=== PATIENT | female | born 1940 | race Caucasian/White ===

== ENCOUNTER → 2017-07-05 | Outpatient (CLI) | payer BC ==
--- NOTE | 2017-07-05 13:32 | RAD ---
DATE: 07/05/2017 EXAM: DIGITAL SCREEN BILAT W/CAD HISTORY: Routine screening COMPARISON: 06/10/2016 This study was interpreted with the benefit of Computerized Aided Detection (CAD). The breast parenchyma shows scattered fibroglandular densities. Breast parenchyma level B. FINDINGS: No new or enlarging breast densities are seen. Benign type calcifications are present. No suspicious microcalcifications have developed. IMPRESSION: Stable mammograms without evidence of malignancy. BI-RADS CATEGORY: 2 BENIGN FINDING(S) RECOMMENDED FOLLOW-UP: 12M 12 MONTH FOLLOW-UP PQRS compliance statement: Patient information was entered into a reminder system with a target due date for the next mammogram. Mammography is a sensitive method for finding small breast cancers, but it does not detect them all and is not a substitute for careful clinical examination. A negative mammogram does not negate a clinically suspicious finding and should not result in delay in biopsying a clinically suspicious abnormality. "Our facility is accredited by the [employer] Mammography [employer]."
== END | disposition home or self-care (01) ==
LOC: MAMMO 10:24
PROVIDERS: ATTEND Family Medicine
DX: Z12.31 Encounter for screening mammogram for malignant neoplasm of breast (principal)
CPT/HCPCS: G0202; 77067

== ENCOUNTER → 2017-10-27 | Outpatient (CLI) | payer BC | END | disposition home or self-care (01) | LOC: KCIC 13:21 | DX: R06.02 Shortness of breath (principal); Z87.891 Personal history of nicotine dependence | CPT/HCPCS: 71046 ==

== ENCOUNTER → 2018-07-06 | Outpatient (CLI) | payer BC ==
--- NOTE | 2018-07-06 16:14 | RAD ---
DATE: 07/06/2018 EXAM: MAMMO PAULIE SCREENING BILATERAL HISTORY: Routine screening COMPARISON: 06/10/2016 and 07/05/2017 screen mammographic exams This study was interpreted with the benefit of Computerized Aided Detection (CAD). Breast Density: SCATTERED The breast parenchyma shows scattered fibroglandular densities. Breast parenchyma level B. FINDINGS: Small masses are stable. No suspicious calcification clusters or distortion. Benign-appearing axillary lymph nodes are present. No distortion in the interval. No new mass. IMPRESSION: Normal BI-RADS CATEGORY: 2 BENIGN FINDING(S) RECOMMENDED FOLLOW-UP: 12M 12 MONTH FOLLOW-UP PQRS compliance statement: Patient information was entered into a reminder system with a target due date in one year for the next mammogram. Mammography is a sensitive method for finding small breast cancers, but it does not detect them all and is not a substitute for careful clinical examination. A negative mammogram does not negate a clinically suspicious finding and should not result in delay in biopsying a clinically suspicious abnormality. "Our facility is accredited by the [employer] Mammography [employer]."
== END | disposition home or self-care (01) ==
LOC: MAMMO 12:32
PROVIDERS: ATTEND Family Medicine
DX: Z12.31 Encounter for screening mammogram for malignant neoplasm of breast (principal)
CPT/HCPCS: 77063; 77067

== ENCOUNTER → 2018-09-12 | Outpatient (CLI) | payer BC ==
--- NOTE | 2018-09-12 12:49 | KCIC ---
CHEST CT WITHOUT CONTRAST Clinical indications: Shortness of breath. Wheezing. Smoker for 50 years. TECHNIQUE: Noncontrast helical CT scanning of the chest was performed. Without contrast, the sensitivity to detect organ pathology is decreased. PQRS compliance Statement One or more of the following individualized dose reduction techniques were utilized for this study: 1. Automated exposure control 2. Adjustment of the mA and/or kV according to patient size 3. Use of iterative reconstruction technique COMPARISON: None available. FINDINGS: Mediastinal lymph nodes are apparent. There is a 15 mm precarinal lymph node. There is a 22 mm aortic pulmonary window lymph node. There is an 18 mm subcarinal lymph node. There are other mediastinal lymph nodes less than 1 cm in size. Evaluation for hilar lymphadenopathy is difficult without IV contrast. Calcified atheromatous disease of the coronary arteries is seen. Heart size is normal and no pericardial effusion is seen. Small hiatal hernia is evident. No focal aneurysmal dilatation of the thoracic aorta is seen. Bilateral peripheral interstitial lung infiltrates are seen bilaterally with a lower lung zone predominance which may be due to mild pulmonary fibrosis. No honeycombing is evident. There is biapical pleural thickening and scarring present. No lung mass or lung consolidation is seen. No pleural effusion or pneumothorax is seen. The proximal bronchial tree is patent. There is a compression fracture of T12 which was seen on a prior chest x-ray dated October 27, 2017 and therefore is old. No lytic process is seen.There is indeterminate hypodense nodule of the posterior segment right lobe liver which measures about 1 cm. There is a 1 cm cyst of the superior aspect left lobe liver. No adrenal mass is seen. IMPRESSION: Mild bilateral peripheral interstitial infiltrates are seen which may represent mild pulmonary fibrosis. No lung consolidation or lung mass is seen. Mediastinal lymphadenopathy. Follow-up chest CT in 3-4 months is recommended to ensure stability of this finding. Calcified atheromatous disease of the coronary arteries. Small hiatal hernia. Indeterminate 1 cm hypodense nodule of the right lobe of the liver. Electronically signed by: Chaim Galvan MD (09/12/2018 12:45 PM) [place] [id number]
== END | disposition home or self-care (01) ==
LOC: KCIC CT 11:09
PROVIDERS: ATTEND Family Medicine
DX: I25.10 Atherosclerotic heart disease of native coronary artery without angina pectoris (principal); K44.9 Diaphragmatic hernia without obstruction or gangrene
CPT/HCPCS: 71250

== ENCOUNTER → 2018-10-14 | Outpatient (CLI) | payer BC ==
[~2018-10-14] MED LIST: AMLO5TAB10 PO; CALC500T30 PO; CHOL100013 PO; CLOP75TA PO; CYAN25008 PO; LOSA1TAB22 PO; LOVA20TA2 PO; OMEP20TA8 PO
--- NOTE | 2018-10-14 10:27 | KCIC ---
Indication: Compression fracture of the thoracic vertebrae. Postmenopausal. TECHNIQUE: DEXA scan COMPARISON: Previous exam from 03/17/2012 FINDINGS: The bone mineral density from L1-L4 measures 1.434 g/sq cm with T score of 3.5, previously 3.7. The bone mineral density in the left femoral neck measures 1.004 g/sq cm with T score of 0.5, previously 0.4. IMPRESSION: Normal bone mineral density at all measured sites. Electronically signed by: Korey Bearden DO (10/14/2018 10:24 AM) [id number]
== END | disposition home or self-care (01) ==
LOC: KCIC DEXA 09:50
PROVIDERS: ATTEND Family Medicine
DX: M84.48XA Pathological fracture, other site, initial encounter for fracture (principal); Z78.0 Asymptomatic menopausal state
CPT/HCPCS: 77080

== ENCOUNTER → 2018-11-10 | Outpatient (CLI) | payer BC ==
--- NOTE | 2018-11-10 09:03 | CARD ---
MR#: [id number] Date of Study: 11/10/2018 Ordering Physician: REDD JAEGER, Referring Physician: REDD JAEGER Tech: Valarie Olson RDCS APPROVED REPORT EXAM: Two-dimensional and M-mode echocardiogram with Doppler and color Doppler. Other Information Quality : Good INDICATION Dyspnea 2D DIMENSIONS RVDd2.8 (2.9-3.5cm)Left Atrium(2D)4.2 (1.6-4.0cm) IVSd1.0 (0.7-1.1cm)Aortic Root(2D)2.7 (2.0-3.7cm) LVDd4.4 (3.9-5.9cm)LVOT Diameter2.2 (1.8-2.4cm) PWd1.0 (0.7-1.1cm)LVDs2.5 (2.5-4.0cm) FS (%) 30.0 %SV63.0 ml LVEF(%)60.0 (>50%) Aortic Valve AoV Peak Sanjeev.135.7cm/sAoV VTI26.2cm AO Peak GR.7.4mmHgLVOT Peak Sanjeev.88.9cm/s AO Mean GR.4mmHgAVA (VMAX)2.58cm2 ILEANA (VTI)2.70cm2 Mitral Valve MV E Zskxiwxo271.2cm/sMV DECEL FBSK846xk MV A Txdirwtu67.7cm/sE/A Ratio1.2 Tricuspid Valve TR P. Zhzhymuf671nf/sRAP QKQSHMYZ7jaTc TR Peak Gr.82aeAiGMZA19ksKj Pulmonary Vein S1 Khknvcxn49.4cm/sD2 Bapfuupz05.8cm/s LEFT VENTRICLE The left ventricle is normal size. There is borderline concentric left ventricular hypertrophy. The l eft ventricular systolic function is normal and the ejection fraction is within normal range. The Eje ction Fraction is 55-60%. There is normal LV segmental wall motion. Transmitral Doppler flow pattern is Grade I-abnormal relaxation pattern. RIGHT VENTRICLE The right ventricle is normal size. The right ventricular systolic function is normal. ATRIA The left atrium is mildly dilated. The right atrium size is normal. The interatrial septum is intact with no evidence for an atrial septal defect or patent foramen ovale as noted on 2-D or Doppler imagi ng. AORTIC VALVE The aortic valve is calcified but opens well. Doppler and Color Flow revealed no significant aortic r egurgitation. There is no significant aortic valvular stenosis. MITRAL VALVE The mitral valve is calcified but opens well. There is no evidence of mitral valve prolapse. There is no mitral valve stenosis. Doppler and Color-flow revealed trace mitral regurgitation. TRICUSPID VALVE The tricuspid valve is normal in structure and function. Doppler and Color Flow revealed trace tricus pid regurgitation. The PA pressure was estimated at 25 mmHg. There is no tricuspid valve stenosis. PULMONIC VALVE The pulmonic valve is not well visualized. Doppler and Color Flow revealed no pulmonic valvular regur gitation. There is no pulmonic valvular stenosis. GREAT VESSELS The aortic root is normal in size. The ascending aorta is normal in size. The IVC is normal in size a nd collapses >50% with inspiration. PERICARDIAL EFFUSION There is no evidence of significant pericardial effusion. Critical Notification Critical Value: No <Conclusion> The left ventricle is normal size. The left ventricular systolic function is normal and the ejection fraction is within normal range. The Ejection Fraction is 55-60%. There is borderline concentric left ventricular hypertrophy. There is no significant aortic valvular stenosis. Doppler and Color Flow revealed no significant aortic regurgitation. Doppler and Color-flow revealed trace mitral regurgitation. Doppler and Color Flow revealed trace tricuspid regurgitation. The PA pressure was estimated at 25 mmHg. Signed by : Scott Schwarz MD Electronically Approved : 11/10/2018 09:03:05
--- NOTE | 2018-11-10 12:39 | RAD ---
MR#: [id number] Date of Study: 11/10/2018 Ordering Physician: MARLEY DEWITT, Referring Physician: DANG COBB Tech: SHREE Mendoza APPROVED REPORT Test Type: Exercise Stress Nurse/Tech: Arabella Mederos R.N. Test Indications: dyspnea on exertion Cardiac History: htn,CVA, Medications: See Electronic Medical Record Medical History: See Electronic Medical Record Resting ECG: SR Resting Heart Rate: 65 bpm Resting Blood Pressure: 154/76mmHg Pretest Chest Pain: No chest pain Nurse/Tech Notes S1S2, lungs CTA Consent: The procedure was explained to the patient in lay terms. Informed consent was witnessed. John eout was entered into [email or web address]. History and Stress Test performed by RT Deena (R) (N) Stress Symptoms SOB, leg fatigue POST EXERCISE Reason for Termination: Reached target heart rate Target HR: Yes Max HR: 167 bpm 137% of Maximum Predicted HR: 122 bpm Exercise duration: 4:45 min:sec, 2 Stage Exercise capacity: 7METs Max Blood Pressure: 177/60mmHg Blood Pressure response to exercise: Normal blood pressure response during stress. Heart Rate response to exercise: wnl Chest Pain: No. Arrhythmia: Yes. HR became very irregular with multiple pac's and few pvc's` ST Change: Yes. very slight ST elevation in lead AVR, very slight ST depression in lead II, V4-V6 INTERPRETATION Stress EKG Conclusion: Abnormal EKG suggestive of multivessel disease. Imaging Protocol IMAGE PROTOCOL: Rest Tc-99m/stress Tc-99m 1 day Rest: Stress: Viability: Radiopharm.Tc99m XyxxlwdtjDt91e Sestamibi Xtpm54rSy 32mCi Duration 16min. 13min. Img Date 11/10/2018 11/10/2018 Inj-Img Ikgl54fbu. 60min. Rest Admin Site:IV - Right AntecubitalAdministrator:RT Deena (R)(N) Stress Admin Site: IV - Right AntecubitalAdministrator: SHREE Mendoza STRESS DATA End Diast. Vol.50.0mlLVEDV index BSA25.0ml End Syst. Vol.7.0mlLVESV index BSA3.0ml Myocardial Mass90.0gEject. Ieurciza33.0% Stress Scores Regional WT0.00Summed WT0.00 Regional WM0.00Summed WM0.00 LV Perfusion There is small sized apical reversible perfusion defect suggestive of mildly impaired perfusion reser ve. Wall Motion Normal wall motion. LV Perf. Quant 17 Seg. SSS6.00 17 Seg. SRS0.00 17 Seg. SDS6.00 Stress Defect Extent (% LAD)1.90Rest Defect Extent (% LAD)0.00Rev. Defect Extent (% LAD)1.90 Stress Defect Extent (% LCX) 30.00Rest Defect Extent (% LCX)0.00Rev. Defect Extent (% LCX)28.80 Stress Defect Extent (% RCA)2.20Rest Defect Extent (% RCA)0.00Rev. Defect Extent (% RCA)2.20 Stress Defect Extent (% NATA)13.00Rest Defect Extent (% NATA)0.00Rev. Defect Extent (% NATA)12.80 Other Information Quality:Average Risk Assessment: Moderate Risk Conclusion 1. Low exercise capacity with only 4.6 Mets achieved 2. Abnormal EKG response with ST changes suggestive of multivesel disease. 3. Small apical reversible defect 4. Normal EF at > 70% 5. Moderate risk study Signed by : Marley Dewitt, Electronically Approved : 11/10/2018 12:38:51
== END | disposition home or self-care (01) ==
LOC: ECHO 10:56
PROVIDERS: ATTEND Internal Medicine Pulmonary Disease
DX: I25.10 Atherosclerotic heart disease of native coronary artery without angina pectoris (principal); I10 Essential (primary) hypertension; R94.31 Abnormal electrocardiogram [ECG] [EKG]; R00.8 Other abnormalities of heart beat; Z86.73 Personal history of transient ischemic attack (TIA), and cerebral infarction without residual deficits
CPT/HCPCS: 78452; 93017; 93306; 96374; 96376; A9500

== ENCOUNTER 2018-11-17 08:15 | Outpatient (CLI) | payer BC ==
[2018-11-17] VITALS (11 sets, daily range): BP systolic 145–170; BP diastolic 54–88
[~2018-11-17] VITALS: Ht 172.7 cm; Wt 87.1 kg
[2018-11-17 09:03] LABS: HEMATOCRIT 39.6 % (36.0-47.0); HEMOGLOBIN 13.2 g/dL (12.0-15.5); RED BLOOD COUNT 4.39 x10^6/uL (3.50-5.40); RED CELL DISTRIBUTION WIDTH 13.4 % (11.5-14.5); WHITE BLOOD COUNT 8.5 x10^3/uL (4.0-11.0)
[2018-11-17 09:18] LABS: CALCIUM 9.5 mg/dL (8.5-10.1); CREATININE 1.4 mg/dL (0.6-1.0); GFR 36.6; POTASSIUM 4.4 mmol/L (3.5-5.1)
[2018-11-17] MEDS ORDERED: OMEP20TA8 PO (09:31)
[2018-11-17] MEDS ORDERED: CLOP75TA PO (09:31)
[2018-11-17] MEDS ORDERED: CALC500T30 PO (09:31)
[2018-11-17] MEDS ORDERED: CHOL100013 PO (09:31)
[2018-11-17] MEDS ORDERED: LOSA1TAB22 PO (09:31)
[2018-11-17] MEDS ORDERED: AMLO5TAB10 PO (09:31)
[2018-11-17] MEDS ORDERED: LOVA20TA2 PO (09:31)
[2018-11-17] MEDS ORDERED: CYAN25008 PO (09:31)
[2018-11-17 09:34] LABS: PROTHROMBIN TIME PATIENT 12.6 SEC (11.7-14.0)
[2018-11-17] MEDS ORDERED: LIDOCAINE 1% PF 2 ML VIAL. ONE (09:36)
[2018-11-17] MEDS ORDERED: VERAPAMIL 5 MG/2 ML VIAL. ONE (09:38)
[2018-11-17] MEDS ORDERED: fentaNYL PF VIAL 100 MCG/2 ML VIAL ONE (09:38)
[2018-11-17] MEDS ORDERED: MIDAZOLAM HCL/PF 2 MG/2 ML VIAL. ONE (09:38)
[2018-11-17] MEDS ORDERED: HEPARIN for IV BOLUS 10,000 UNIT/10 ML VIAL. ONE (09:38)
[2018-11-17] MEDS ORDERED: NITROGLYCERIN 200 MCG/2 ML SYRINGE FOR CATH/VASC LAB. ONE ×2 (09:39→10:30)
[2018-11-17] MEDS ORDERED: IODIXANOL 320 MG/ML 100 ML VIAL. ONE (09:56)
[2018-11-17] MEDS ORDERED: fentaNYL PF VIAL 100 MCG/2 ML VIAL IV ONE (10:00)
[2018-11-17] MEDS ORDERED: LIDOCAINE 1% PF 2 ML VIAL. INJ ONE (10:00)
[2018-11-17] MEDS ORDERED: VERAPAMIL 5 MG/2 ML VIAL. IART ONE (10:00)
[2018-11-17] MEDS ORDERED: HEPARIN for IV BOLUS 10,000 UNIT/10 ML VIAL. IART ONE (10:00)
[2018-11-17] MEDS ORDERED: MIDAZOLAM HCL/PF 2 MG/2 ML VIAL. IV ONE (10:00)
[2018-11-17] MEDS ORDERED: IODIXANOL 320 MG/ML 100 ML VIAL. IART ONE (10:00)
[2018-11-17] MEDS: NITROGLYCERIN 200 MCG/2 ML SYRINGE FOR CATH/VASC LAB. IART ONE (10:00)
--- NOTE | 2018-11-17 10:06 | PDOC ---
MODERATE SEDATION ASSESSMENT RISKS/ALTERNATIVES Risks/Alternatives Risks and alternatives of this type of sedation and procedure discussed with: RISK/ALTERNATIVES: Patient H & P ON CHART H & P H & P on chart and reviewed for co-morbid conditions and appropriate labs. H&P ON CHART: Yes STATUS PREG STATUS ASSESSED: N/A MEDS/ALLERGIES REVIEWED Meds/Allergies Reviewed Medications and Allergies including time and route of recently administered narcotics and sedatives. MEDS/ALLERGIES REVIEWED: Yes ASA RATING ASA RATING: II AIRWAY ASSESSMENT Airway Assessment Airway patency, oral function limitations, presence of caps, crowns, dentures, partials, and ability to extend neck assessed. AIRWAY ASSESSMENT: Yes MALLAMPATI SCORE MALLAMPATI SCORE: II PRE-SEDATION ASSESSMENT PRE-SEDATION ASSESSMENT: Yes MARLEY REAL MD Nov 17, 2018 10:06
[2018-11-17] MEDS ORDERED: CONTRAST GIVEN. MC PRN (10:15)
[2018-11-17] MEDS ORDERED: HEPARIN for IV BOLUS 10,000 UNIT/10 ML VIAL. IV ONE (10:30)
--- NOTE | 2018-11-17 11:10 | CARD ---
MR#: [id number] Date of Study: 11/17/2018 Ordering Physician: MARLEY REAL, Referring Physician: MARLEY REAL, Tech: RT Ryan (R) APPROVED REPORT Technologist: RT Ryan (R) Nurse: Marleny Garland RN Procedure(s) performed: Fluoro Time: 8.6 Contrast:76 DAP: 0.21 Moderate sedation: 45 minutes LHC, Coronary angiography, iFR of the LAD HISTORY The patient is a 78 year-old female with a history of : hypertension, dyslipidemia. INDICATION The indication(s) include : positive stress test, unstable angina , dyspnea. Heart Failure Heart Failure: No PROCEDURE NARRATIVE INFORMED CONSENT: After explaining the risks and benefits of the procedure and alternatives, informed consent was obtained. The patient was brought electively to the cardiac catheterization lab. A timeout was performed confi rming the patient's name, date of , procedure, and site of procedure. All necessary personnel w ere wearing the appropriate protective equipment and radiation monitor devices. (See nursing notes for medications administered). ACCESS: The right wrist was sterilely prepped and draped in the usual fashion. The right wrist was infiltrat ed with 1 mL of 2% lidocaine for subcutaneous anesthesia. A 6 Danish Terumo glide sheath was inserte d into the right radial artery without difficulty. CORONARY ANGIOGRAPHY: Right and left coronary angiography was performed using a 6Fr TIG 4.0 catheter. Left ventricular en d diastolic pressure was obtained with a TIG catheter and pullback was performed. All catheter excha nges and advancements were performed over a guidewire. FINDINGS: HEMODYNAMICS: LVEDP 15 mm Hg No gradient on LV to aortic pullback. AO: 140/80 LEFT VENTRICULOGRAM: Deferred due to renal insufficiency. Known normal EF on stress testing. CORONARY ANGIOGRAPHY: LM is a large caliber vessel with a distal 20% stenosis. LAD is a large caliber calcified vessel with a mid 40-50% stenosis. The distal and apical vessel had mild luminal irregularities. Ramus is a moderate caliber vessel with mild luminal irregularities. LCx is a large caliber dominant calcified vessel with mild luminal irregularities. LPDA is a moderate caliber vessel with mild luminal irregularities. RCA is a small caliber non-dominant vessel with a proximal 80% stenosis. INTERVENTIONAL TECHNIQUE: iFR of the LAD Due to apical ischemia and moderate LAD disease, an iFR study was performed. Heparin was used for ant icoagulation. Through a 6Fr EBU 3.5 guide catheter, a 0.014'' pressure wire was advanced to the dista l LAD after appropriate normalization and NTG administration. iFR was measured at 0.92. Final post-iF R angiography demonstrated no evidence of guide or wire related complications. CLOSURE: At case completion the right radial sheath was removed and a Terumo radial band was applied with 13 m l of air. COMPLICATIONS: The patient tolerated the procedure well and there were no immediate complications. Conclusion 1. Normal left sided filling pressures. 2. Two vessel CAD 3. Negative iFR of the LAD Recommendations Aggressive Medical Therapy Signed by : Marley Real, Electronically Approved : 11/17/2018 11:06:07
--- NOTE | 2018-11-17 13:58 | NUR ---
Discharge Note: Discharge instructions and discharge home medications reviewed with Patient and a copy given. All questions have been answered and understanding verbalized. The following instructions and handouts were given on radial site care and moderate sedation. Discontinued PIV. Patient discharged to home with self care accompanied by her son.
== END 2018-11-17 14:00 | disposition home or self-care (01) ==
LOC: CCL 08:15
PROVIDERS: ATTEND Internal Medicine Cardiovascular Disease
DX: I25.110 Atherosclerotic heart disease of native coronary artery with unstable angina pectoris (principal); I10 Essential (primary) hypertension; E78.5 Hyperlipidemia, unspecified; Z88.5 Allergy status to narcotic agent; Z79.899 Other long term (current) drug therapy; Z86.73 Personal history of transient ischemic attack (TIA), and cerebral infarction without residual deficits; Z98.890 Other specified postprocedural states; Z90.710 Acquired absence of both cervix and uterus; Z90.722 Acquired absence of ovaries, bilateral; Z90.79 Acquired absence of other genital organ(s); Z82.49 Family history of ischemic heart disease and other diseases of the circulatory system; Z87.891 Personal history of nicotine dependence; Z98.49 Cataract extraction status, unspecified eye; Z96.1 Presence of intraocular lens; Z80.51 Family history of malignant neoplasm of kidney
CPT/HCPCS: 36415; 80048; 85027; 85610; 93458; 93571; 99152; 99153; C1769; C1887; C1892; J1644; J2250; J3010; J3490; Q9967

== ENCOUNTER → 2019-01-17 | Outpatient (CLI) | payer BC ==
[2018-11-17 14:17] VITALS: BP 146/60
--- NOTE | 2019-01-17 15:47 | KCIC ---
CT CHEST WO CONTRAST Indication: Mediastinal lymphadenopathy, smoker Technique: Noncontrast CT imaging was performed of the chest, multiplanar reconstruction images submitted. One or more of the following individualized dose reduction techniques were utilized for this examination: 1. Automated exposure control 2. Adjustment of the mA and/or kV according to patient size 3. Use of iterative reconstruction technique. Comparison: September 12, 2018 Findings: Precarinal lymph node about 1 cm short axis dimension, AP window node about 0.9 cm short axis dimension, and subcarinal node about 0.9 cm short axis dimension are overall unchanged. No new enlarged nodes are identified of the chest. There are some subcentimeter right axillary nodes also as seen previously., Largest about 0.7 cm short axis dimension. Largest left axillary node measures about 0.6 cm short axis dimension. There is again suspected nodularity of the right thyroid gland, largest more medially about 1 cm. There is scattered plaque of the thoracic aorta. There is prominent coronary calcification. There is no pericardial or pleural fluid, pneumothorax, lobar consolidation. Major airways are patent. There is mild nonspecific wall thickening of more distal esophagus. There is stable hypodense lesion of the lateral left lobe of the liver 0.8 cm too small to accurately characterize, also small focus posterior right lobe liver also unchanged. There may be left adrenal nodule as seen previously about 1.1 cm, density measurements suggestive of adenoma 6 Hounsfield units. There is again mild septal thickening such as posteriorly of the lower lobes bilaterally right greater than left, also centrilobular emphysema with upper zone predominance. There is some similar subpleural density of the right upper lobe near the apex more likely component of fibrotic change, very minimally on the left. There is new subtle groundglass density of the left upper lobe such as seen image 24. There are also now some areas of mild groundglass density of the left lower lobe image 40. There is again superior L1 compression deformity. IMPRESSION: 1. Previously seen mediastinal lymph nodes are unchanged. There are some new areas of relative groundglass density of the left upper and left lower lobes, more likely to be a postinfectious or postinflammatory basis. Density of the apices greater on the right is more likely component of fibrotic change although continued surveillance such as in 6-12 months may be beneficial at which time nodes could also be reassessed. 2. There is coronary calcification. 3. There are foci of nodularity of the right thyroid gland, more accurately characterized by ultrasound. 4. There is emphysema with upper zone predominance. Electronically signed by: Teto Rodríguez MD (01/17/2019 3:44 PM) [id number]
== END | disposition home or self-care (01) ==
LOC: KCIC CT 09:51
PROVIDERS: ATTEND Family Medicine
DX: J43.2 Centrilobular emphysema (principal); J98.59 Other diseases of mediastinum, not elsewhere classified; I25.10 Atherosclerotic heart disease of native coronary artery without angina pectoris; I70.0 Atherosclerosis of aorta; F17.200 Nicotine dependence, unspecified, uncomplicated
CPT/HCPCS: 71250

== ENCOUNTER → 2019-01-27 | Outpatient (CLI) | payer BC ==
[2018-11-17 14:17] VITALS: BP 146/60
--- NOTE | 2019-01-27 16:09 | KCIC ---
EXAM: THYROID ULTRASOUND. HISTORY: Thyroid nodule. COMPARISON: 01/17/2019. FINDINGS: Sonographic evaluation of the thyroid gland was performed. The right lobe measures 5.3 x 2.0 x 1.5 cm. The parenchyma is heterogeneous and mostly replaced by heterogeneous nodules. The largest solid nodule is isoechoic at the lower pole and measures 1.5 x 1.3 x 0.7 cm. Others are consistent with colloid cysts. The left lobe measures 4.8 x 2.1 x 2.0 cm. The parenchyma is heterogeneous. A dominant nodule at the left lower pole is solid greater than cystic and measures 2.0 x 1.5 x 1.7 cm. A mostly cystic nodule at the upper pole measures 1.4 x 1.3 cm. The isthmus measures 3 mm. IMPRESSION: 1. Multiple bilateral thyroid nodules measure up to 2.0 cm on the left and 1.5 cm on the right. None have clearly suspicious characteristics. These can be followed in 6-12 months to confirm stability. Alternatively, the largest nodules could be sampled with ultrasound-guided fine-needle aspiration. Electronically signed by: Kishor Bryson MD (01/27/2019 4:06 PM) [facility]
== END | disposition home or self-care (01) ==
LOC: KCIC US 14:40
PROVIDERS: ATTEND Family Medicine
DX: E04.2 Nontoxic multinodular goiter (principal)
CPT/HCPCS: 76536

== ENCOUNTER → 2019-03-10 | Outpatient (CLI) | payer BC ==
[2019-02-14 08:29] VITALS: BP 138/66
[~2019-03-10] MED LIST changes: +METO-239 PO
--- NOTE | 2019-03-10 16:38 | KCIC ---
Indication: Chronic kidney disease stage IV TECHNIQUE: Grayscale, color Doppler and spectral waveform images of the kidneys COMPARISON: None FINDINGS: Proximal aorta not visualized. The mid and distal aortic segments demonstrate no aneurysm. IVC within normal limits. Right kidney measures 12.2 x 5.5 x 4.7 cm without hydronephrosis. Bladder within normal limits. Left ureteral jet is seen. Right ureteral jet not seen. Left kidney measures 10.0 x 4.3 x 4.1 cm without hydronephrosis. IMPRESSION: No hydronephrosis. Electronically signed by: Korey Bearden DO (03/10/2019 4:35 PM) [facility]
== END | disposition home or self-care (01) ==
LOC: KCIC US 14:52
PROVIDERS: ATTEND Internal Medicine Nephrology
DX: I12.9 Hypertensive chronic kidney disease with stage 1 through stage 4 chronic kidney disease, or unspecified chronic kidney disease (principal); N18.4 Chronic kidney disease, stage 4 (severe)
CPT/HCPCS: 76770

== ENCOUNTER → 2019-03-30 | Outpatient (CLI) | payer BC ==
[2019-02-14 08:29] VITALS: BP 138/66
--- NOTE | 2019-03-30 12:57 | RAD ---
Examination: US GUID NDL PLACE/ASPI/BX History: Bilateral thyroid nodules Comparison/Correlation: 01/27/2019 thyroid ultrasound exam Findings: Risks and benefits of fine-needle aspiration of thyroid nodules with ultrasound guidance were discussed with the patient and informed consent was obtained. Limited ultrasound imaging was performed. Cleansing with ChloraPrep was performed. 25-gauge needles were utilized. Medial approach was utilized for fine needle aspiration of the dominant isoechoic medial right thyroid nodule after administration of 3.5 cc of 1 percent lidocaine. Total 4 passes were made with 4 separate syringes. Lateral approach was utilized for final aspiration with 4 separate syringes of the left lower thyroid pole dominant nodule after administration of 3.5 cc 1 percent lidocaine. Specimens were provided to the package designer and were reported to be adequate. The patient tolerated procedure well without immediate complications. Impression: Successful fine-needle aspiration of the dominant nodule in the right lobe and the left lobe of the thyroid gland. Electronically signed by: Hubert Min MD (03/30/2019 12:54 PM) [facility]
--- NOTE | 2019-04-03 18:06 | PATHOLOGY ---
Note [facility] Accession Number: [id number] TESTS RESULT FLAG UNITS REF RANGE LAB Clinician Provided Cytology Information No. of containers..01 Other (Miscellaneous) Source: RIGHT INFER THYROID DIAGNOSIS: RIGHT INFER THYROID NEGATIVE FOR MALIGNANT CELLS. BETHESDA CATEGORY II. SPECIMEN CONSISTS OF ABUNDANT BENIGN FOLLICULAR CELLS, HEMOSIDERIN-LADEN MACROPHAGES, SCANT COLLOID AND BLOOD. THE PATTERN IS CONSISTENT WITH ADENOMATOID NODULE. THIS INTERPRETATION INCLUDES EVALUATION OF A CELL BLOCK. Pathologist ICD10: 02 E04.1 Signed out by: 02 Se Urbina MD, Pathologist NPI- [id number] Performed by: Yue Chandler, Patent Searcher ([facility]) Gross description: 01 30ML, PINK, CLEAR /LCS FLAG LEGEND: L-Low Normal,H-High Normal,LL-Alert Low,HH-Alert High <-Panic Low,>-Panic High,A-Abnormal,AA-Critical Abnormal Performed at: [address] [place] [address] Anatoliy Wyatt MD, 02 [facility] [address] [place] [address] Se Urbina MD, Specimen Comment: A duplicate report has been generated due to demographic updates. Performed at: [address], [place] [id number] MD Anatoliy Wyatt MD Phone: [phone]
--- NOTE | 2019-04-03 18:06 | PATHOLOGY ---
Note [facility] Accession Number: [id number] TESTS RESULT FLAG UNITS REF RANGE LAB Clinician Provided Cytology Information No. of containers..01 Other (Miscellaneous) Source: LEFT THYROID NODULE DIAGNOSIS: LEFT THYROID NODULE NEGATIVE FOR MALIGNANT CELLS. BETHESDA CATEGORY II. SPECIMEN CONSISTS OF ABUNDANT BENIGN FOLLICULAR CELLS, HEMOSIDERIN-LADEN MACROPHAGES, COLLOID, AND BLOOD. THE PATTERN IS CONSISTENT WITH ADENOMATOID NODULE. THIS INTERPRETATION INCLUDES EVALUATION OF A CELL BLOCK. Pathologist ICD10: 02 E04.1 Signed out by: 02 Se Urbina MD, Pathologist NPI- [id number] Performed by: Yue Chandler, Fire And Safety Helper ([facility]) Gross description: 01 30ML, RED, CLEAR /LCS FLAG LEGEND: L-Low Normal,H-High Normal,LL-Alert Low,HH-Alert High <-Panic Low,>-Panic High,A-Abnormal,AA-Critical Abnormal Performed at: [place] [facility] [address] [place] [address] Anatoliy Wyatt MD, 02 [facility] [address] [place] [address] Se Urbina MD, Specimen Comment: A courtesy copy of this report has been sent to Specimen Comment: [phone], . Specimen Comment: Report sent to DR RAMIREZ / DR TAYLOR Specimen Comment: A duplicate report has been generated due to demographic updates. Performed at: [address], [place], [place] [id number] MD Anatoliy Wyatt MD Phone: [phone]
== END ==
LOC: US 10:25
PROVIDERS: ATTEND Family Medicine
DX: E04.1 Nontoxic single thyroid nodule (principal)
CPT/HCPCS: 10005; 10006; 60300; 76942; 88173; 88305

== ENCOUNTER → 2019-07-12 | Outpatient (CLI) | payer BC ==
[2019-02-14 08:29] VITALS: BP 138/66
--- NOTE | 2019-07-12 15:50 | RAD ---
DATE: 07/12/2019. EXAM: MAMMO PAULIE SCREENING BILATERAL. HISTORY: Routine mammographic screening. COMPARISON: 07/06/2018. This study was interpreted with the benefit of Computerized Aided Detection (CAD). FINDINGS: Breast Density: FATTY The breast parenchyma is primarily fatty replaced. Breast parenchyma level density A.. Scattered calcifications are benign. Small nodules on the left are stable. There are no suspicious masses, microcalcifications or architectural distortion. The parenchymal pattern is stable. BI-RADS CATEGORY: 2 BENIGN FINDING(S). RECOMMENDED FOLLOW-UP: 12M 12 MONTH FOLLOW-UP. PQRS compliance statement: Patient information was entered into a reminder system with a target due date 07/12/2020 for the next mammogram. Mammography is a sensitive method for finding small breast cancers, but it does not detect them all and is not a substitute for careful clinical examination. A negative mammogram does not negate a clinically suspicious finding and should not result in delay in biopsying a clinically suspicious abnormality. "Our facility is accredited by the [employer] Mammography Program."
== END | disposition home or self-care (01) ==
LOC: MAMMO 08:52
PROVIDERS: ATTEND Family Medicine
DX: Z12.31 Encounter for screening mammogram for malignant neoplasm of breast (principal); N63.20 Unspecified lump in the left breast, unspecified quadrant
CPT/HCPCS: 77063; 77067

== ENCOUNTER → 2019-07-26 | Outpatient (CLI) | payer BC ==
[2019-02-14 08:29] VITALS: BP 138/66
--- NOTE | 2019-07-26 17:09 | RAD ---
MR#: [id number] Date of Study: 07/26/2019 Ordering Physician: MARLEY REAL, Referring Physician: MARLEY REAL, Tech: Sophie Dalton, MANDY, RVT, RTR APPROVED REPORT Patient Location: OUT-PATIENT Laterality:Bilateral Indications CVA/TIA: Risk Factors Hypertension: Doppler Spectral Velocity Analysis Right Left pCCA 130/17 cm/spCCA 132/18 cm/s mCCA 83/12 cm/smCCA 106/20 cm/s dCCA 86/19 cm/sdCCA 88/20 cm/s Bulb 112/23 cm/sBulb 65/16 cm/s ECA 137/16 cm/sECA 195/21 cm/s pICA 96/15 cm/spICA 90/15 cm/s Carmen 75/18 cm/smICA 83/24 cm/s dICA 101/19 cm/sdICA 92/29 cm/s Vert. 45/13 cm/sVert. 64/14 cm/s ICA/CCA 1.20ICA/CCA 0.86 Findings Grayscale images of the bilateral common carotid arteries reveal mild diffuse intimal hyperplasia. Th ere is a moderate plaque at the level of the left carotid bulb and mild on the right side. Spectral waveforms and color Doppler of the bilateral internal carotid arteries are grossly within no rmal limits suggestive of 0 to less than 50% stenosis by velocity criteria The right external carotid artery likely has moderate disease and the left external carotid artery si milarly also has moderate disease in the 50-69% range. The bilateral vertebral velocities are antegrade but slightly diminished. Critical Notification Critical Value: No <Conclusion> 1. No significant bilateral internal carotid occlusive disease. Signed by : Marley Real, Electronically Approved : 07/26/2019 17:09:45
== END | disposition home or self-care (01) ==
LOC: KCIC US 14:46
PROVIDERS: ATTEND Internal Medicine Cardiovascular Disease
DX: I65.23 Occlusion and stenosis of bilateral carotid arteries (principal); I77.3 Arterial fibromuscular dysplasia; Z86.73 Personal history of transient ischemic attack (TIA), and cerebral infarction without residual deficits
CPT/HCPCS: 93880

== ENCOUNTER → 2019-08-07 | Outpatient (CLI) | payer BC ==
[2019-02-14 08:29] VITALS: BP 138/66
--- NOTE | 2019-08-07 14:05 | KCIC ---
EXAM: Bilateral lower extremity venous Doppler sonogram; bilateral lower extremity venous reflux sonogram. HISTORY: Pain and swelling. TECHNIQUE: Jenkins scale and color Doppler sonographic evaluation of the bilateral lower extremity veins with spectral waveform analysis was performed. FINDINGS: There is normal color flow, normal compressibility and there are normal spectral waveforms in the common femoral, superficial femoral, popliteal, posterior tibial and greater saphenous veins. The bilateral greater and lesser saphenous veins demonstrate no evidence of reflux. The right and left greater saphenous veins measure 6.6 mm and 5.9 mm in maximum caliber. The right and left lesser saphenous veins measure 3.2 mm and 1.7 mm in maximum caliber. IMPRESSION: No Doppler evidence of lower extremity deep venous thrombosis or greater or lesser saphenous vein reflux. Electronically signed by: Sharee George MD (08/07/2019 2:03 PM) [place] [id number]
== END | disposition home or self-care (01) ==
LOC: KCIC US 12:07
PROVIDERS: ATTEND Internal Medicine Cardiovascular Disease
DX: I87.2 Venous insufficiency (chronic) (peripheral) (principal); I10 Essential (primary) hypertension; Z87.891 Personal history of nicotine dependence
CPT/HCPCS: 93970

== ENCOUNTER → 2020-03-08 | Outpatient (CLI) | payer BC ==
[2019-02-14 08:29] VITALS: BP 138/66
--- NOTE | 2020-03-08 11:42 | KCIC ---
CT CHEST WO CONTRAST Indication: Mediastinal lymphadenopathy, previous smoker Technique: Noncontrast CT imaging was performed of the chest, multiplanar reconstruction images submitted. No contrast was given due to the patient's renal function. One or more of the following individualized dose reduction techniques were utilized for this examination: 1. Automated exposure control 2. Adjustment of the mA and/or kV according to patient size 3. Use of iterative reconstruction technique. Comparison: January 17, 2019 Findings: Biapical density extending near the pleural surfaces right greater than left is similar in appearance. There is no new infiltrate, pleural or pericardial fluid, or pneumothorax. There is again emphysema. There is again degree of septal thickening with lower lobe predominance unchanged in overall appearance. Small 0.2 to 0.3 cm right upper lobe nodule image 17 series 2 is unchanged. There is no new suspicious pulmonary nodularity. There is again coronary calcification. Previously seen mediastinal nodes are similar, largest precarinal node about 0.9 cm short axis dimension. Thoracic aortic caliber is within normal limits, some scattered plaque present. There is stable small left adrenal nodule about 1.1 cm this measurements suggestive of adenoma. Small hypodense lesion of the posterior right lobe of liver about 0.7 cm is similar. 0.9 severe hypodense lesion of the left lobe of liver similar. There may be mild wall thickening of the distal esophagus as seen previously. There is again some heterogeneity of the visualized thyroid gland greater on the right. There is again mild superior L1 compression deformity. IMPRESSION: 1. Findings are stable compared with January 17, 2019 exam, similar mediastinal nodes and biapical density probably due to fibrotic change. There is again emphysema. Tiny right upper lobe nodule is also stable. 2. There is again coronary calcification. Electronically signed by: Teto Rodríguez MD (03/08/2020 11:39 AM) [id number]
== END | disposition home or self-care (01) ==
LOC: KCIC CT 09:58
PROVIDERS: ATTEND Internal Medicine Pulmonary Disease
DX: J92.9 Pleural plaque without asbestos (principal); I25.10 Atherosclerotic heart disease of native coronary artery without angina pectoris; M43.8X6 Other specified deforming dorsopathies, lumbar region; J43.9 Emphysema, unspecified; J98.4 Other disorders of lung; R91.1 Solitary pulmonary nodule; R59.0 Localized enlarged lymph nodes; Z87.891 Personal history of nicotine dependence
CPT/HCPCS: 71250; 82565

== ENCOUNTER → 2020-03-26 | Outpatient (CLI) | payer BC ==
[2019-02-14 08:29] VITALS: BP 138/66
--- NOTE | 2020-03-26 11:36 | RAD ---
MR#: [id number] Date of Study: 03/26/2020 Ordering Physician: MARLEY REAL, Referring Physician: MARLEY REAL, Tech: APPROVED REPORT Patient Location: OUT-PATIENT Exam Type: Ankle to Brachial Index Indications PAD Risk Factors History of PAD: Hypertension TIA/CVA History Smoking Pressures/Indices RightABI LeftABI Brachial 141mmHg.91Brachial 162mmHg.93 Ankle(PT) 147mmHgAnkle(PT) 141mmHg Ankle(DP) 143mmHgAnkle(DP) 151mmHg Critical Notification Critical Value: No <Conclusion> Normal bilateral NIKKI Signed by : Marley Real, Electronically Approved : 03/26/2020 11:36:12
--- NOTE | 2020-03-26 11:38 | RAD ---
MR#: [id number] Date of Study: 03/26/2020 Ordering Physician: MARLEY REAL, Referring Physician: MARLEY REAL, Tech: APPROVED REPORT Patient Location: OUT-PATIENT Indications PAD Grayscale images of the bilateral lower extremity arterial vessels revealed mild diffuse atherosclero sis. Spectral waveforms and color Doppler are mostly triphasic and biphasic without any focal obstru ction noted. There is three-vessel runoff below the knee Risk Factors Hypertension TIA/CVA History Smoking VELOCITY AND DOPPLER WAVEFORM ANALYSIS RIGHT cm/secWaveformSeverity LEFT cm/secWaveform Severity dCFA 124.0TriphasicdCFA 119.0Triphasic Prof Fem Art. 89.0TriphasicProf Fem Art. 80.0Biphasic Fem Art Prox. 103.0BiphasicFem Art Prox. 89.0Biphasic Fem Art Mid. 103.0BiphasicFem Art Mid. 107.0Biphasic Fem Art Dist. 65.0BiphasicFem Art Dist. 70.0Biphasic Pop Art(AK) Pop Art(AK) Pop Art(Fossa) 77.0BiphasicPop Art(AK) 76.0Biphasic SPECIAL INSPECTOR Prox. 77.0BiphasicPTA Prox. 89.0Biphasic Per Art Prox. Per Art Prox. Biphasic Per Art Mid. 31.0BiphasicPer Art Mid. 79.0Biphasic STEFFI Prox. 61.0BiphasicATA Prox. 81.0Biphasic DPA 74BiphasicDPA 76Biphasic Critical Notification Critical Value: No <Conclusion> 1. No significant lower extremity arterial disease bilaterally Signed by : Marley Real, Electronically Approved : 03/26/2020 11:37:59
--- NOTE | 2020-03-26 11:47 | RAD ---
MR#: [id number] Date of Study: 03/26/2020 Ordering Physician: MARLEY REAL, Referring Physician: MARLEY REAL, Tech: APPROVED REPORT Patient Location: OUT-PATIENT Risk Factors PAD Hypertension TIA/CVA History Smoking Duplex Results A/PTransverseLongitudinal Proximal Aorta 2.0cm Mid Aorta 1.1cm Distal Aorta 1.4cm Rt. Common Iliac Artery.93cm Lt. Common Iliac Artery .88cm Doppler VelocityWaveform Aorta Mid. 136.3 cm/sec Distal Aorta 136.3 cm/sec Rt. Common Iliac Ssiyiz094.6 cm/sec Lt. Common Iliac Artery 159.6 cm/sec Findings Grayscale images of the abdominal aorta were limited due to overlying bowel gas. No obvious evidence of abdominal aortic aneurysm is noted with dimensions as noted above. Mildly elevated peak systolic velocities in the right common iliac artery suggestive of mild to moderate stenosis. Critical Notification Critical Value: No <Conclusion> 1. No evidence of abdominal aortic aneurysm Signed by : Marley Real, Electronically Approved : 03/26/2020 11:46:51
--- NOTE | 2020-03-26 11:50 | RAD ---
MR#: [id number] Date of Study: 03/26/2020 Ordering Physician: MARLEY REAL, Referring Physician: MARLEY REAL, Tech: APPROVED REPORT Patient Location: OUT-PATIENT Laterality:Bilateral Indications CVA/TIA: Risk Factors Hypertension: TIA/CVA History PAD Smoking Doppler Spectral Velocity Analysis Right Left pCCA 113/18 cm/spCCA 94/23 cm/s mCCA 79/15 cm/smCCA 79/12 cm/s dCCA 70/18 cm/sdCCA 106/23 cm/s ECA 76/ cm/sECA 152/ cm/s pICA 65/12 cm/spICA 65/14 cm/s Carmen 65/17 cm/smICA 71/20 cm/s dICA 54/18 cm/sdICA 62/22 cm/s ICA/CCA 0.58ICA/CCA 0.76 Findings Grayscale images of the bilateral common carotid, external and internal carotid vessels are grossly u nremarkable. Overall based on velocity criteria there is 0 to less than 50% stenosis in the bilateral internal car otid artery. Normal ICA to CCA ratios bilaterally. Normal antegrade vertebral velocities bilaterall y. Critical Notification Critical Value: No <Conclusion> No significant carotid occlusive disease. Signed by : Marley Real, Electronically Approved : 03/26/2020 11:49:58
== END ==
LOC: KCIC US 07:55
PROVIDERS: ATTEND Internal Medicine Cardiovascular Disease
DX: I10 Essential (primary) hypertension (principal); I73.9 Peripheral vascular disease, unspecified; Z87.891 Personal history of nicotine dependence
CPT/HCPCS: 93880; 93922; 93925; 93978

== ENCOUNTER 2020-04-18 17:24 | Inpatient (IN) | payer BC ==
[~2020-04-18] VITALS: Ht 172.7 cm; Wt 90.2 kg
--- NOTE | 2020-04-18 18:27 | PHYS DOC ---
Past Medical History Past Medical History: CVA, GERD, High Cholesterol, Hypertension, Renal Disease Past Surgical History: Hysterectomy Smoking Status: Former Smoker Alcohol Use: Occasionally Drug Use: None General Adult EDM: Chief Complaint: NAUSEA/VOMITING/DIARRHA HPI: HPI: Patient is a 80 year old female who presents with a chief complaint of fever and myalgias and chills that began 2 days ago. Patient has couple episodes of nausea vomiting and has a nonproductive cough. Patient denies any chest pain or shortness of breath. No headaches. No abdominal pain. No diarrhea. Patient denies any sick contacts or known exposure to COVID-19. Symptoms are better with antipyretics and rest. Review of Systems: Review of Systems: Constitutional: Complains of fever or chills. [] Eyes: Denies change in visual acuity. [] HENT: Denies nasal congestion or sore throat. [] Respiratory: Denies shortness of breath. [] Complains of dry cough Cardiovascular: Denies chest pain or edema. [] GI: Denies abdominal pain, but has nausea and vomiting x1, no diarrhea : Denies dysuria. [] Musculoskeletal: Denies back pain or joint pain. [] Complains of myalgias Integument: Denies rash. [] Neurologic: Denies headache, focal weakness or sensory changes. [] Endocrine: Denies polyuria or polydipsia. [] Lymphatic: Denies swollen glands. [] Psychiatric: Denies depression or anxiety. [] Heart Score: Risk Factors: Risk Factors: DM, Current or recent (<one month) smoker, HTN, HLP, family h istory of CAD, obesity. Risk Scores: Score 0 - 3: 2.5% MACE over next 6 weeks - Discharge Home Score 4 - 6: 20.3% MACE over next 6 weeks - Admit for Clinical Observation Score 7 - 10: 72.7% MACE over next 6 weeks - Early Invasive Strategies Current Medications: Current Medications Medications (Trade) Dose Ordered Sig/Rox Start Time Stop Time Status Last Admin Dose Admin Acetaminophen (Tylenol) 1,000 mg 1X ONCE 04/18/20 19:00 04/18/20 19:01 Ondansetron HCl (Zofran) 4 mg 1X ONCE 04/18/20 19:00 04/18/20 19:01 Allergies: Allergies: Allergies Coded Allergies Type Severity Reaction Last Updated Verified hydrocodone Allergy Intermediate Hives 11/17/18 Yes Physical Exam: PE: Constitutional: Well developed, well nourished, no acute distress, non-toxic appearance. [] HENT: Normocephalic, atraumatic, bilateral external ears normal, no trismus nose normal. [] Eyes: PERRLA, EOMI, conjunctiva normal, no discharge. [] Neck: Normal range of motion, no tenderness, supple, no stridor. [] No meningeal signs Cardiovascular:Heart rate regular rhythm, peripheral pulses intact, cap refill brisk Lungs & Thorax: Bilateral breath sounds clear, no respiratory distress Abdomen: Bowel sounds normal, soft, no tenderness, no masses, no pulsatile masses. [] Skin: Warm, dry, no erythema, no rash. [] Back: No tenderness, no CVA tenderness. [] Extremities: No tenderness, no cyanosis, no clubbing, ROM intact, no edema. [] Neurologic: Alert and oriented X 3, normal motor function, normal sensory function, no focal deficits noted. [] Psychologic: Affect normal, judgement normal, mood normal. [] Current Patient Data: Labs: Laboratory Tests Test 04/18/20 17:51 04/18/20 19:31 04/18/20 19:34 White Blood Count 6.4 x10^3/uL Red Blood Count 3.81 x10^6/uL Hemoglobin 11.1 g/dL Hematocrit 33.5 % Mean Corpuscular Volume 88 fL Mean Corpuscular Hemoglobin 29 pg Mean Corpuscular Hemoglobin Concent 33 g/dL Red Cell Distribution Width 14.4 % Platelet Count 174 x10^3/uL Neutrophils (%) (Auto) 82 % Lymphocytes (%) (Auto) 8 % Monocytes (%) (Auto) 10 % Eosinophils (%) (Auto) 0 % Basophils (%) (Auto) 1 % Neutrophils # (Auto) 5.3 x10^3/uL Lymphocytes # (Auto) 0.5 x10^3/uL Monocytes # (Auto) 0.6 x10^3/uL Eosinophils # (Auto) 0.0 x10^3/uL Basophils # (Auto) 0.0 x10^3/uL Sodium Level 129 mmol/L Potassium Level 4.3 mmol/L Chloride Level 95 mmol/L Carbon Dioxide Level 18 mmol/L Anion Gap 16 Blood Urea Nitrogen 24 mg/dL Creatinine 2.3 mg/dL Estimated GFR (Cockcroft-Gault) 20.5 BUN/Creatinine Ratio 10 Glucose Level 144 mg/dL Lactic Acid Level 1.7 mmol/L Calcium Level 8.3 mg/dL Ferritin 113 ng/mL Total Bilirubin 0.4 mg/dL Aspartate Amino Transf (AST/SGOT) 30 U/L Alanine Aminotransferase (ALT/SGPT) 22 U/L Alkaline Phosphatase 88 U/L Lactate Dehydrogenase 207 U/L Creatine Kinase 83 U/L Troponin I Quantitative < 0.017 ng/mL C-Reactive Protein, Quantitative 137.1 mg/L Total Protein 7.7 g/dL Albumin 3.4 g/dL Albumin/Globulin Ratio 0.8 Lipase 189 U/L Procalcitonin 0.45 ng/mL Prothrombin Time 13.2 SEC Prothromb Time International Ratio 1.0 Activated Partial Thromboplast Time 29 SEC D-Dimer (Priyanka) 0.90 ug/mlFEU Urine Collection Type Void Urine Color Yellow Urine Clarity Cloudy Urine pH 5.5 Urine Specific [place] 1.015 Urine Protein 100 mg/dL Urine Glucose (UA) Negative mg/dL Urine Ketones (Stick) Trace mg/dL Urine Blood Trace Urine Nitrite Negative Urine Bilirubin Small Urine Urobilinogen Dipstick 0.2 mg/dL Urine Leukocyte Esterase Small Urine RBC Rare /HPF Urine WBC 1-4 /HPF Urine Squamous Epithelial Cells Many /LPF Urine Bacteria Many /HPF Urine Mucus Marked /LPF Current Medications Medications (Trade) Dose Ordered Sig/Rox Route PRN Reason Start Time Stop Time Status Last Admin Dose Admin Ondansetron HCl (Zofran) 4 mg 1X ONCE IVP 04/18/20 19:00 04/18/20 19:01 DC 04/18/20 19:25 Acetaminophen (Tylenol) 1,000 mg 1X ONCE PO 04/18/20 19:00 04/18/20 19:01 DC 04/18/20 19:25 Piperacillin Sod/ Tazobactam Sod 3.375 gm/Sodium Chloride 50 ml @ 100 mls/hr 1X ONCE IV 04/18/20 19:45 04/18/20 19:50 DC Sodium Chloride 1,000 ml @ 1,000 mls/hr 1X ONCE IV 04/18/20 20:00 04/18/20 20:59 DC 04/18/20 20:50 Ondansetron HCl (Zofran) 4 mg PRN Q8HRS PRN IV NAUSEA/VOMITING 04/18/20 20:30 04/19/20 20:29 Sodium Chloride 1,000 ml @ 125 mls/hr Q8H IV 04/18/20 20:21 04/19/20 20:20 04/18/20 20:51 Acetaminophen (Tylenol) 650 mg PRN Q4HRS PRN PO FEVER > 100.3'F 04/18/20 20:30 04/19/20 20:29 Vital Signs: Vital Signs Date Time Temp Pulse Resp B/P (MAP) Pulse Ox O2 Delivery O2 Flow Rate FiO2 04/18/20 18:59 86 20 128/54 (78) Room Air 04/18/20 18:29 88 22 142/53 (82) Room Air 04/18/20 17:59 100 20 142/54 (83) Room Air 04/18/20 17:33 99.9 98 22 119/61 (80) 97 Room Air 99.9 04/18/20 17:29 98 22 119/61 (80) 96 Room Air Vital Signs Date Time Temp Pulse Resp B/P (MAP) Pulse Ox O2 Delivery O2 Flow Rate FiO2 04/18/20 17:33 99.9 98 22 119/61 (80) 97 Room Air 99.9 EKG: EKG: [] EKG interpreted by me normal sinus rhythm with a rate of 97 superior right axis deviation, nonspecific ST changes Radiology/Procedures: Radiology/Procedures: [][facility] [address] [place] [address] IMAGING REPORT Signed PATIENT: DAMARI VELASQUEZ ACCOUNT: [id number] : 1940 LOCATION: ER AGE: 80 SEX: F EXAM STATUS: REG ER ORD. PHYSICIAN: AMI STEVENS MD REASON: fever 22 PROCEDURE: PORTABLE CHEST 1V Exam: Chest one view INDICATION: Fever TECHNIQUE: Frontal view of the chest Comparisons: 10/27/2017 FINDINGS: The cardiomediastinal silhouette and pulmonary vessels are within normal limits. The lung and pleural spaces are clear. IMPRESSION: No acute cardiopulmonary process. Electronically signed by: Cheikh Hernandez MD (04/18/2020 6:47 PM) [id number] DICTATED and SIGNED BY: CHEIKH HERNANDEZ MD DATE: 04/18/20 184 Course & Med Decision Making: Course & Med Decision Making Pertinent Labs and Imaging studies reviewed. (See chart for details) [] 80-year-old female presents with fever as well as nausea vomiting and cough. Assessment patient is clinically stable and improved. Patient will be tested for coronavirus. Laboratory evaluation reveals a metabolic Acidosis and she is clinically dry. Patient will need IV fluids and admission to the hospital. Discussed the case with Dr. Kilgore who will admit. Patient does have elevated d- dimer but denies any shortness of breath or chest pain will hold off on CT angiogram for now if she decompensates the hospitalist will order. Dragon Disclaimer: Dragon Disclaimer: This electronic medical record was generated, in whole or in part, using a voice recognition dictation system. Departure Departure Impression: Primary Impression: Fever Additional Impression: Nausea & vomiting Disposition: ADMITTED INPATIENT Admitting Physician: FERNANDA (SHIVA) Condition: STABLE Referrals: CAROLEE MAGUIRE MD (PCP) Justicifation of Admission Dx: Justifications for Admission: Justification of Admission Dx: Yes AMI STEVENS MD Apr 18, 2020 18:27
[2020-04-18 18:31] LABS: BASO % 1 % (0-3); EOS % 0 % (0-3); HEMATOCRIT 33.5 % (36.0-47.0); HEMOGLOBIN 11.1 g/dL (12.0-15.5); LYMPH # 0.5 x10^3/uL (1.0-4.8); LYMPH % 8 % (24-48); MEAN CORPUSCULAR HEMOGLOBIN 29 pg (25-35); MEAN CORPUSCULAR HGB CONC 33 g/dL (31-37); MEAN CORPUSCULAR VOLUME 88 fL (79-100); MONO # 0.6 x10^3/uL (0.0-1.1); MONO % 10 % (0-9); NEUT # 5.3 x10^3/uL (1.8-7.7); NEUT % 82 % (31-73); PLATELET COUNT 174 x10^3/uL (140-400); RED BLOOD COUNT 3.81 x10^6/uL (3.50-5.40); RED CELL DISTRIBUTION WIDTH 14.4 % (11.5-14.5); WHITE BLOOD COUNT 6.4 x10^3/uL (4.0-11.0)
[2020-04-18 18:43] LABS: CALCIUM 8.3 mg/dL (8.5-10.1); CREATININE 2.3 mg/dL (0.6-1.0); GFR 20.5; POTASSIUM 4.3 mmol/L (3.5-5.1)
--- NOTE | 2020-04-18 18:50 | RAD ---
Exam: Chest one view INDICATION: Fever TECHNIQUE: Frontal view of the chest Comparisons: 10/27/2017 FINDINGS: The cardiomediastinal silhouette and pulmonary vessels are within normal limits. The lung and pleural spaces are clear. IMPRESSION: No acute cardiopulmonary process. Electronically signed by: Cheikh Goff MD (04/18/2020 6:47 PM) [id number]
[2020-04-18] MEDS ORDERED: ONDANSETRON PF 4 MG/2 ML VIAL. IVP ONE (19:00)
[2020-04-18] MEDS ORDERED: ACETAMINOPHEN 500 MG TABLET PO ONE (19:00)
[2020-04-18 19:02] LABS: ALBUMIN 3.4 g/dL (3.4-5.0); ALBUMIN/GLOBULIN RATIO 0.8 (1.0-1.7); C-REACTIVE PROTEIN 137.1 mg/L (0-3.3); TOTAL BILIRUBIN 0.4 mg/dL (0.2-1.0); TOTAL PROTEIN 7.7 g/dL (6.4-8.2)
[2020-04-18 19:43] LABS: BILIRUBIN,URINE SMALL (NEG); CLARITY,URINE CLOUDY; COLOR,URINE YELLOW; NITRITE,URINE NEGATIVE (NEG); PH,URINE 5.5 (<5.0-8.0); PROTEIN,URINE 100 mg/dL (NEG-TRACE); UROBILINOGEN,URINE 0.2 mg/dL (0.2 mg/dL)
[2020-04-18] MEDS ORDERED: PIPERACILLIN/TAZOBACTAM 3.375 GM in IV NORMAL SALINE 50ML 50 ML IV ONE (19:45)
[2020-04-18 19:51] LABS: PROTHROMBIN TIME PATIENT 13.2 SEC (11.7-14.0)
[2020-04-18 19:51] LABS: BACTERIA,URINE MANY /HPF (0-FEW); SQUAMOUS EPITHELIAL CELL,UR MANY /LPF
[2020-04-18 19:52] LABS: RBC,URINE RARE /HPF (0-2)
[2020-04-18] MEDS ORDERED: IV NORMAL SALINE 1000ML BAG 1,000 ML IV ONE (20:00)
[2020-04-18 20:08] LABS: D-DIMER 0.9 ug/mlFEU (0.00-0.50)
[2020-04-18] MEDS ORDERED: ONDANSETRON PF 4 MG/2 ML VIAL. IV PRN (20:30)
[2020-04-18] MEDS ORDERED: ACETAMINOPHEN 325 MG TABLET. PO PRN (20:30)
[2020-04-18] MEDS: IV NORMAL SALINE 1000ML BAG 1,000 ML IV SCH (20:51)
[2020-04-18 23:15] VITALS: BP 126/63
--- NOTE | 2020-04-18 23:15 | NUR ---
The patient, DAMARI VELASQUEZ, 80 y/o, F admitted by VINCENT SHANNON MD, was given written information regarding hospital policies, unit procedures and contact persons. patient was transferred to the room via ED bed, assisted by ED staff member. Valuables were checked and noted. Patient is currently sitting in bed call light in hand. desk monitor was applied to the patient and admission vitals were taken at this time. Patient was given ice water and a turkey sandwich box per patient request at this time. The patient was educated and instructed to call for help before getting out of bed. This RN will continue to monitor the patient at this time.
[2020-04-19 03:00] VITALS: BP 146/62
[2020-04-19] MEDS: IV NORMAL SALINE 1000ML BAG 1,000 ML IV SCH ×2 (04:21→12:21)
[2020-04-19 07:00] VITALS: BP 160/89
--- NOTE | 2020-04-19 07:17 | EKG ---
[facility] [address] [place] [address] Test Date: 2020-04-18 Test Time: 17:54:45 Pat Name: DAMARI VELASQUEZ Department: Room: Gender: F Stockroom Inventory Clerk: : 1940 Requested By: AMI STEVENS Order Number: [id number] Reading MD: Measurements Intervals [place] Rate: 97 P: IA: QRS: 204 QRSD: 80 T: 146 QT: 334 QTc: 428 Interpretive Statements IRREGULAR RHYTHM, NO P-WAVE FOUND ABNORMAL RIGHT SUPERIOR AXIS DEVIATION S1,S2,S3 PATTERN CONSIDER RIGHT VENTRICULAR HYPERTROPHY QRS(T) CONTOUR ABNORMALITY CONSISTENT WITH HIGH LATERAL INFARCT AGE UNDETERMINED ABNORMAL ECG RI6.02 No previous ECG available for comparison
--- NOTE | 2020-04-19 09:10 | PDOC1 ---
History and Physical Date of Service: DOS: DATE: 04/19/20 TIME: 09:04 History of Present Illness: HPI: 80 year old female who presents with a chief complaint of fever and myalgias and chills that began 2 days ago. Patient has couple episodes of nausea vomiting and has a nonproductive cough. Patient denies any chest pain or shortness of breath. No headaches. No abdominal pain. No diarrhea. Patient denies any sick contacts or known exposure to COVID-19. Symptoms are better with antipyretics and rest. Past Medical/Surgical History: PMH/PSH: Past Medical History: CVA, GERD, High Cholesterol, Hypertension, Renal Disease Past Surgical History: Hysterectomy Allergies: Allergies: Coded Allergies: hydrocodone (Verified Allergy, Intermediate, Hives, 11/17/18) Family History: Family History: Reviewed and none reported Social History: Social History: Smoking Status: Former Smoker Alcohol Use: Occasionally Drug Use: None Current Medications: Current Medications Current Medications Ondansetron HCl (Zofran) 4 mg 1X ONCE IVP Last administered on 04/18/20at 19:25; Start 04/18/20 at 19:00; Stop 04/18/20 at 19:01; Status DC Acetaminophen (Tylenol) 1,000 mg 1X ONCE PO Last administered on 04/18/20at 19:25; Start 04/18/20 at 19:00; Stop 04/18/20 at 19:01; Status DC Piperacillin Sod/ Tazobactam Sod 3.375 gm/Sodium Chloride 50 ml @ 100 mls/hr 1X ONCE IV ; Start 04/18/20 at 19:45; Stop 04/18/20 at 19:50; Status DC Sodium Chloride 1,000 ml @ 1,000 mls/hr 1X ONCE IV Last administered on 04/18/20at 20:50; Start 04/18/20 at 20:00; Stop 04/18/20 at 20:59; Status DC Ondansetron HCl (Zofran) 4 mg PRN Q8HRS PRN IV NAUSEA/VOMITING; Start 04/18/20 at 20:30; Stop 04/19/20 at 20:29 Sodium Chloride 1,000 ml @ 125 mls/hr Q8H IV Last administered on 04/19/20at 04:21; Start 04/18/20 at 20:21; Stop 04/19/20 at 20:20 Acetaminophen (Tylenol) 650 mg PRN Q4HRS PRN PO FEVER > 100.3'F; Start 04/18/20 at 20:30; Stop 04/19/20 at 20:29 Active Scripts Active Metoprolol Succinate ( Xl ) (Metoprolol Succinate) 25 Mg Tab.er.24h 1 Tab PO DAILY Amlodipine Besylate 5 Mg Tablet 10 Mg PO DAILY 14 Days Reported Lovastatin 20 Mg Tablet 1 Tab PO DAILY Vitamin B12 (Cyanocobalamin (Vitamin B-12)) 2,500 Mcg Tablet 2,500 Mcg PO DAILY Calcium (Calcium Carbonate) 500 Mg Tablet 500 Mg PO DAILY Vitamin D (Cholecalciferol (Vitamin D3)) 1,000 Unit Capsule 1 Cap PO DAILY Omeprazole 20 Mg Tablet.dr 1 Tab PO DAILY Clopidogrel (Clopidogrel Bisulfate) 75 Mg Tablet 1 Tab PO DAILY ROS: Review of Systems Review of System REVIEW OF SYSTEMS: GENERAL: Denies weakness SKIN: No bruising, hair changes or rashes. EYES: No blurred, double or loss of vision. NOSE AND THROAT: No history of nosebleeds, hoarseness or sore throat. HEART: No history of palpitations, chest pain or shortness of breath on exertion. LUNGS: Denies cough, hemoptysis, wheezing or shortness of breath. GASTROINTESTINAL: Denies changes in appetite, nausea, vomiting, diarrhea or constipation. GENITOURINARY: No history of frequency, urgency, hesitancy or nocturia. NEUROLOGIC: Denies history of numbness, tingling, or tremor. PSYCHIATRIC: No history of panic, anxiety or depression. ENDOCRINE: No history of heat or cold intolerance, polyuria or polydipsia. EXTREMITIES: Denies joint pain, pain on walking or stiffness. Physical Exam: Vital Signs: Vital Signs Date Time Temp Pulse Resp B/P (MAP) Pulse Ox O2 Delivery O2 Flow Rate FiO2 04/19/20 07:00 98.0 86 18 160/89 (112) 96 Room Air 98.0 Physcial Exam: GEN: No apparent distress. Alert and oriented HEENT: Normal cephalic, atraumatic, external auditory canals are patent EYES: Extraocular muscles are intact, pupil are equally round and reactive to light and accommodation MUSCULOSKELETAL: Well developed , well nourished, good range of motion ENDOCRINE: No thyromegaly was palpated LYMPHATICS: No cervical chain or axillary nodes were noted HEMATOPOIETIC: No bruising NECK: Supple, no JVD, no thyromegaly was noted LUNGS: Clear to auscultation in all lung andersen without rhonchi or wheezing HEART: RRR, S!, S2 present. Peripheral pulses intact, no obvious murmurs noted ABDOMEN: Soft, nontender. Positive bowel sounds, no organomegaly, normal bowel sounds EXTREMITIES: Without clubbing, cyanosis, or edema. Pedal pulses intact. Negative Homans sign NEUROLOGIC: Normal speech and tone. A&O x 3, moves all extremities, no obvious focal deficits PSYCHIATRIC: Normal affect, normal mood. Stable SKIN: No ulcerations or rashes, good skin turgor, no jaundice VASCULAR: Good capillary refill, neurovascular bundle appears to be intact Labs: Labs: Laboratory Tests Test 04/18/20 17:51 04/18/20 19:31 04/18/20 19:34 White Blood Count 6.4 x10^3/uL (4.0-11.0) Red Blood Count 3.81 x10^6/uL (3.50-5.40) Hemoglobin 11.1 g/dL (12.0-15.5) Hematocrit 33.5 % (36.0-47.0) Mean Corpuscular Volume 88 fL (79-100) Mean Corpuscular Hemoglobin 29 pg (25-35) Mean Corpuscular Hemoglobin Concent 33 g/dL (31-37) Red Cell Distribution Width 14.4 % (11.5-14.5) Platelet Count 174 x10^3/uL (140-400) Neutrophils (%) (Auto) 82 % (31-73) Lymphocytes (%) (Auto) 8 % (24-48) Monocytes (%) (Auto) 10 % (0-9) Eosinophils (%) (Auto) 0 % (0-3) Basophils (%) (Auto) 1 % (0-3) Neutrophils # (Auto) 5.3 x10^3/uL (1.8-7.7) Lymphocytes # (Auto) 0.5 x10^3/uL (1.0-4.8) Monocytes # (Auto) 0.6 x10^3/uL (0.0-1.1) Eosinophils # (Auto) 0.0 x10^3/uL (0.0-0.7) Basophils # (Auto) 0.0 x10^3/uL (0.0-0.2) Sodium Level 129 mmol/L (136-145) Potassium Level 4.3 mmol/L (3.5-5.1) Chloride Level 95 mmol/L (98-107) Carbon Dioxide Level 18 mmol/L (21-32) Anion Gap 16 (6-14) Blood Urea Nitrogen 24 mg/dL (7-20) Creatinine 2.3 mg/dL (0.6-1.0) Estimated GFR (Cockcroft-Gault) 20.5 BUN/Creatinine Ratio 10 (6-20) Glucose Level 144 mg/dL (70-99) Lactic Acid Level 1.7 mmol/L (0.4-2.0) Calcium Level 8.3 mg/dL (8.5-10.1) Ferritin 113 ng/mL (8-252) Total Bilirubin 0.4 mg/dL (0.2-1.0) Aspartate Amino Transf (AST/SGOT) 30 U/L (15-37) Alanine Aminotransferase (ALT/SGPT) 22 U/L (14-59) Alkaline Phosphatase 88 U/L (46-116) Lactate Dehydrogenase 207 U/L (81-234) Creatine Kinase 83 U/L (26-192) Troponin I Quantitative < 0.017 ng/mL (0.000-0.055) C-Reactive Protein, Quantitative 137.1 mg/L (0-3.3) Total Protein 7.7 g/dL (6.4-8.2) Albumin 3.4 g/dL (3.4-5.0) Albumin/Globulin Ratio 0.8 (1.0-1.7) Lipase 189 U/L (73-393) Procalcitonin 0.45 ng/mL (0.00-0.10) Prothrombin Time 13.2 SEC (11.7-14.0) Prothromb Time International Ratio 1.0 (0.8-1.1) Activated Partial Thromboplast Time 29 SEC (24-38) D-Dimer (Priyanka) 0.90 ug/mlFEU (0.00-0.50) Urine Collection Type Void Urine Color Yellow Urine Clarity Cloudy Urine pH 5.5 (<5.0-8.0) Urine Specific [place] 1.015 (1.000-1.030) Urine Protein 100 mg/dL (NEG-TRACE) Urine Glucose (UA) Negative mg/dL (NEG) Urine Ketones (Stick) Trace mg/dL (NEG) Urine Blood Trace (NEG) Urine Nitrite Negative (NEG) Urine Bilirubin Small (NEG) Urine Urobilinogen Dipstick 0.2 mg/dL (0.2 mg/dL) Urine Leukocyte Esterase Small (NEG) Urine RBC Rare /HPF (0-2) Urine WBC 1-4 /HPF (0-4) Urine Squamous Epithelial Cells Many /LPF Urine Bacteria Many /HPF (0-FEW) Urine Mucus Marked /LPF Laboratory Tests Test 04/18/20 17:51 04/18/20 19:31 04/18/20 19:34 White Blood Count 6.4 x10^3/uL (4.0-11.0) Red Blood Count 3.81 x10^6/uL (3.50-5.40) Hemoglobin 11.1 g/dL (12.0-15.5) Hematocrit 33.5 % (36.0-47.0) Mean Corpuscular Volume 88 fL (79-100) Mean Corpuscular Hemoglobin 29 pg (25-35) Mean Corpuscular Hemoglobin Concent 33 g/dL (31-37) Red Cell Distribution Width 14.4 % (11.5-14.5) Platelet Count 174 x10^3/uL (140-400) Neutrophils (%) (Auto) 82 % (31-73) Lymphocytes (%) (Auto) 8 % (24-48) Monocytes (%) (Auto) 10 % (0-9) Eosinophils (%) (Auto) 0 % (0-3) Basophils (%) (Auto) 1 % (0-3) Neutrophils # (Auto) 5.3 x10^3/uL (1.8-7.7) Lymphocytes # (Auto) 0.5 x10^3/uL (1.0-4.8) Monocytes # (Auto) 0.6 x10^3/uL (0.0-1.1) Eosinophils # (Auto) 0.0 x10^3/uL (0.0-0.7) Basophils # (Auto) 0.0 x10^3/uL (0.0-0.2) Sodium Level 129 mmol/L (136-145) Potassium Level 4.3 mmol/L (3.5-5.1) Chloride Level 95 mmol/L (98-107) Carbon Dioxide Level 18 mmol/L (21-32) Anion Gap 16 (6-14) Blood Urea Nitrogen 24 mg/dL (7-20) Creatinine 2.3 mg/dL (0.6-1.0) Estimated GFR (Cockcroft-Gault) 20.5 BUN/Creatinine Ratio 10 (6-20) Glucose Level 144 mg/dL (70-99) Lactic Acid Level 1.7 mmol/L (0.4-2.0) Calcium Level 8.3 mg/dL (8.5-10.1) Ferritin 113 ng/mL (8-252) Total Bilirubin 0.4 mg/dL (0.2-1.0) Aspartate Amino Transf (AST/SGOT) 30 U/L (15-37) Alanine Aminotransferase (ALT/SGPT) 22 U/L (14-59) Alkaline Phosphatase 88 U/L (46-116) Lactate Dehydrogenase 207 U/L (81-234) Creatine Kinase 83 U/L (26-192) Troponin I Quantitative < 0.017 ng/mL (0.000-0.055) C-Reactive Protein, Quantitative 137.1 mg/L (0-3.3) Total Protein 7.7 g/dL (6.4-8.2) Albumin 3.4 g/dL (3.4-5.0) Albumin/Globulin Ratio 0.8 (1.0-1.7) Lipase 189 U/L (73-393) Procalcitonin 0.45 ng/mL (0.00-0.10) Prothrombin Time 13.2 SEC (11.7-14.0) Prothromb Time International Ratio 1.0 (0.8-1.1) Activated Partial Thromboplast Time 29 SEC (24-38) D-Dimer (Priyanka) 0.90 ug/mlFEU (0.00-0.50) Urine Collection Type Void Urine Color Yellow Urine Clarity Cloudy Urine pH 5.5 (<5.0-8.0) Urine Specific [place] 1.015 (1.000-1.030) Urine Protein 100 mg/dL (NEG-TRACE) Urine Glucose (UA) Negative mg/dL (NEG) Urine Ketones (Stick) Trace mg/dL (NEG) Urine Blood Trace (NEG) Urine Nitrite Negative (NEG) Urine Bilirubin Small (NEG) Urine Urobilinogen Dipstick 0.2 mg/dL (0.2 mg/dL) Urine Leukocyte Esterase Small (NEG) Urine RBC Rare /HPF (0-2) Urine WBC 1-4 /HPF (0-4) Urine Squamous Epithelial Cells Many /LPF Urine Bacteria Many /HPF (0-FEW) Urine Mucus Marked /LPF Images: Images CXR IMPRESSION: No acute cardiopulmonary process. Justifications for Admission Other Justification VINCENT SHANNON MD Apr 19, 2020 09:10
[2020-04-19] MEDS ORDERED: ACET500T68 PO (09:59)
[2020-04-19] MEDS ORDERED: OMEP40CA45 PO (09:59)
[2020-04-19] MEDS ORDERED: VALS160T3 PO (09:59)
[2020-04-19] MEDS ORDERED: HYDR-2868 PO (09:59)
[2020-04-19 10:15] LABS: BASO % 1 % (0-3); EOS % 0 % (0-3); HEMATOCRIT 31.3 % (36.0-47.0); HEMOGLOBIN 10.3 g/dL (12.0-15.5); LYMPH # 1.1 x10^3/uL (1.0-4.8); LYMPH % 24 % (24-48); MEAN CORPUSCULAR HEMOGLOBIN 30 pg (25-35); MEAN CORPUSCULAR HGB CONC 33 g/dL (31-37); MEAN CORPUSCULAR VOLUME 90 fL (79-100); MONO # 0.4 x10^3/uL (0.0-1.1); MONO % 10 % (0-9); NEUT # 2.9 x10^3/uL (1.8-7.7); NEUT % 66 % (31-73); PLATELET COUNT 147 x10^3/uL (140-400); RED CELL DISTRIBUTION WIDTH 14.6 % (11.5-14.5); WHITE BLOOD COUNT 4.5 x10^3/uL (4.0-11.0)
[2020-04-19 10:26] LABS: CALCIUM 7.9 mg/dL (8.5-10.1); CREATININE 1.8 mg/dL (0.6-1.0); GFR 27.2
[2020-04-19 10:37] LABS: POTASSIUM 4.3 mmol/L (3.5-5.1)
[2020-04-19 11:00] VITALS: BP 176/80
--- NOTE | 2020-04-19 12:07 | DISCH ---
DISCHARGE INSTRUCTIONS Condition on Discharge Condition on Discharge: Stable Activity After Discharge Activity Instructions for Disc: Activity as tolerated Lifting Instructions after Dis: Do not lift >10 pounds Driving Instructions after Dis: Do not drive today Diet after Discharge Diet after Discharge: Cardiac Contacting the DRChelita after DC Call your doctor for: If your condition worsens Follow-Up Follow up with: PCP within 1 week of discharge VINCENT SHANNON MD Apr 19, 2020 12:07
[2020-04-19] MEDS ORDERED: ACETAMINOPHEN 500 MG TABLET PO PRN (12:15)
[2020-04-19] MEDS ORDERED: LOSARTAN POTASSIUM 50 MG TABLET. PO SCH (12:30)
[2020-04-19] MEDS ORDERED: hydrALAZINE 25 MG TABLET PO SCH (12:30)
[2020-04-19 15:00] VITALS: BP 128/64
--- NOTE | 2020-04-19 16:00 | NUR ---
Discharge Note: DAMARI VELASQUEZ [address] [place] [address] Discharge instructions and discharge home medications reviewed with Patient and a copy given. All questions have been answered and understanding verbalized. The following instructions and handouts were given: PT to make an appt with PCP on sunday 04/22, for follow up. Discontinued lines and drains: Peripheral IV intact. Patient discharged to Home or Self Care with Friend via Wheelchair.
--- NOTE | 2020-04-19 17:17 | NUR ---
SW following. Spoke with RN and reviewed chart. Pt discharged home self-care on room air and oral medications. No further SW needs.
[2020-04-20] MEDS ORDERED: PANTOPRAZOLE 40 MG TABLET.DR. PO SCH (07:30)
[2020-04-20] MEDS ORDERED: CHOLECALCIFEROL (VITAMIN D3) 1,000 UNIT TABLET PO SCH (09:00)
[2020-04-20] MEDS ORDERED: CYANOCOBALAMIN (VITAMIN B-12) 1,000 MCG TABLET. PO SCH (09:00)
[2020-04-20] MEDS ORDERED: CLOPIDOGREL BISULFATE 75 MG TABLET PO SCH (09:00)
--- NOTE | 2020-04-22 09:33 | NUR ---
IP: Informed pt of + COVID results. Instructed pt to self quarantine for 14 days. Pt verbalized understanding.
== END 2020-04-19 16:00 | disposition home or self-care (01) | DRG 179 ==
LOC: ER 17:24 → 6 SOUTH 19:47
PROVIDERS: ADMIT Internal Medicine; ATTEND Internal Medicine
DX: U07.1 COVID-19 (principal); E78.00 Pure hypercholesterolemia, unspecified; I10 Essential (primary) hypertension; Z86.73 Personal history of transient ischemic attack (TIA), and cerebral infarction without residual deficits; Z87.891 Personal history of nicotine dependence; Z90.710 Acquired absence of both cervix and uterus; K21.9 Gastro-esophageal reflux disease without esophagitis; Z88.8 Allergy status to other drugs, medicaments and biological substances; Z79.899 Other long term (current) drug therapy
CPT/HCPCS: 36415; 71045; 80048; 80053; 81001; 82550; 82728; 83605; 83615; 83690; 84145; 84484; 85025; 85379; 85610; 85730; 86140; 87040; 87077; 87086; 87186; 87205; 93005; 96361; 96374; J2405; J7030; 99285-25; G0378; U0003-CS

== ENCOUNTER → 2020-07-23 | Outpatient (CLI) | payer BC ==
[~2020-07-23] MED LIST changes: +ACET500T68 PO; +AMLO-186 PO; -AMLO5TAB10 PO; +HYDR-2868 PO; +OMEP40CA45 PO; +VALS160T3 PO
--- NOTE | 2020-07-24 15:10 | RAD ---
DATE: 07/23/2020 2:16 PM EXAM: MAMMO PAULIE SCREENING BILATERAL HISTORY: Screening COMPARISON: 07/12/2019, 07/06/2018 Bilateral CC and MLO views of the breasts were performed. Bilateral breast tomosynthesis was performed in CC and MLO projections. This study was interpreted with the benefit of Computerized Aided Detection (CAD). FINDINGS: Breast Density: FATTY The Breast Parenchyma is primarily fatty replaced. Breast parenchyma level density A. No suspicious masses, microcalcifications or architectural distortion is present to suggest malignancy in either breast. The visualized axillae are unremarkable. IMPRESSION: No mammographic evidence of malignancy. BI-RADS CATEGORY: 1 NEGATIVE RECOMMENDED FOLLOW-UP: 12M 12 MONTH FOLLOW-UP Annual screening mammography is recommended, unless clinically indicated sooner based on symptoms or change in physical exam. PQRS compliance statement: Patient information was entered into a reminder system with a target due date for the next mammogram. Mammography is a sensitive method for finding small breast cancers, but it does not detect them all and is not a substitute for careful clinical examination. A negative mammogram does not negate a clinically suspicious finding and should not result in delay in biopsying a clinically suspicious abnormality. "Our facility is accredited by the [employer] Mammography Program."
== END ==
LOC: MAMMO 14:14
PROVIDERS: ATTEND Family Medicine
DX: Z12.31 Encounter for screening mammogram for malignant neoplasm of breast (principal)
CPT/HCPCS: 77063; 77067

== ENCOUNTER → 2021-03-18 | Outpatient (CLI) | payer BC, MEDICARE ==
[~2021-03-18] MED LIST changes: -OMEP40CA45 PO; +OMEP40CA7 PO
--- NOTE | 2021-03-18 09:00 | KCIC ---
Examination: CT chest without contrast HISTORY: History of follow-up mediastinal adenopathy COMPARISON: 03/08/2020 TECHNIQUE: Axial CT images of chest were performed without contrast. Coronal and sagittal reformats a re performed. Exposure: One or more of the following individualized dose reduction techniques were utilized for thi s examination: 1. Automated exposure control 2. Adjustment of the mA and/or kV according to patient size 3. Use of iterative reconstruction technique FINDINGS: Central airways are patent. Moderate aortic atherosclerosis. Diffuse coronary artery calcifications. Mildly enlarged mediastinal lymph nodes with the largest measuring 1.4 cm similar to prior exam. Mild bilateral lung emphysematous changes. Minimal bibasilar lung atelectasis. Mild apical scarring lopez es bilateral lungs similar to prior exam. Small cystic structures identified in the liver similar to prior exam probably cysts. Aorta grossly appears unremarkable. Moderate degenerative changes thoracic spine. IMPRESSION: 1. Mildly enlarged mediastinal lymph nodes similar to prior exam. 2. Coronary artery calcifications. 3. Mild bilateral lung emphysematous changes. Electronically signed by: Jorge Alejo MD (03/18/2021 8:57 AM) [id number]
== END ==
LOC: KCIC CT 07:56
PROVIDERS: ATTEND Internal Medicine Pulmonary Disease
DX: R59.0 Localized enlarged lymph nodes (principal); J43.9 Emphysema, unspecified; J98.11 Atelectasis; J98.4 Other disorders of lung; I70.0 Atherosclerosis of aorta; I25.10 Atherosclerotic heart disease of native coronary artery without angina pectoris
CPT/HCPCS: 71250

== ENCOUNTER → 2021-07-30 | Outpatient (CLI) | payer BC ==
--- NOTE | 2021-07-30 14:50 | RAD ---
Bilateral digital screening 2-D and 3-D (digital breast tomosynthesis) mammogram: Reason for examination: Routine screening. Comparison: Mammograms from 07/23/2020 and 07/12/2019. Interpretation was made with the benefit of CAD. FINDINGS: Breast density: Category A. Breast tissue is almost entirely fatty. No suspicious breast mass, malignant appearing calcifications, or architectural distortion is seen. IMPRESSION: No evidence of malignancy. Assessment: BI-RADS 1. Negative. Recommendation: Routine screening mammograms. The patient will receive a letter with the results in the mail. Patient information will be entered i nto the mammography reminder system with a target recall date for the next mammogram. A reminder stephanie er will be generated. Electronically signed by: Alisha Lara MD (07/30/2021 2:47 PM) [id number]
== END ==
LOC: MAMMO 10:10
PROVIDERS: ATTEND Family Medicine
DX: Z12.31 Encounter for screening mammogram for malignant neoplasm of breast (principal)
CPT/HCPCS: 77063; 77067